=== PATIENT | male | born 1980 | race Caucasian/White ===

== ENCOUNTER 2016-05-29 23:38 | Emergency (ER) | payer MEDICAID ==
[2012-02-14 14:07] VITALS: BMI 27.1
== END 2016-05-30 00:50 | disposition home or self-care (01) ==
LOC: D.ER 23:38
DX: K57.92 Diverticulitis of intestine, part unspecified, without perforation or abscess without bleeding (principal); K59.00 Constipation, unspecified; F17.200 Nicotine dependence, unspecified, uncomplicated

== ENCOUNTER 2016-06-14 16:57 | Emergency (ER) | payer MEDICAID ==
[2012-02-14 14:07] VITALS: BMI 27.1
== END 2016-06-14 19:27 | disposition home or self-care (01) ==
LOC: D.ER 16:57
DX: K04.7 Periapical abscess without sinus (principal); K08.89 Other specified disorders of teeth and supporting structures; F17.200 Nicotine dependence, unspecified, uncomplicated

== ENCOUNTER 2016-07-11 21:04 | Emergency (ER) | payer MEDICAID ==
[2012-02-14 14:07] VITALS: BMI 27.1
== END 2016-07-12 00:26 | disposition home or self-care (01) ==
LOC: D.ER 21:04
DX: M79.672 Pain in left foot (principal); F17.200 Nicotine dependence, unspecified, uncomplicated

== ENCOUNTER 2016-08-15 15:15 | Emergency (ER) | payer MEDICAID ==
[2012-02-14 14:07] VITALS: BMI 27.1
== END 2016-08-15 17:26 | disposition home or self-care (01) ==
LOC: D.ER 15:15
DX: S90.31XA Contusion of right foot, initial encounter (principal); W20.8XXA Other cause of strike by thrown, projected or falling object, initial encounter; Y93.89 Activity, other specified; Y92.89 Other specified places as the place of occurrence of the external cause; Y99.8 Other external cause status; F17.200 Nicotine dependence, unspecified, uncomplicated

== ENCOUNTER 2016-08-17 17:27 | Emergency (ER) | payer MEDICAID ==
[2012-02-14 14:07] VITALS: BMI 27.1
== END 2016-08-17 18:53 | disposition home or self-care (01) ==
LOC: D.ER 17:27
DX: M25.474 Effusion, right foot (principal); S99.921A Unspecified injury of right foot, initial encounter; W20.8XXA Other cause of strike by thrown, projected or falling object, initial encounter; Y93.89 Activity, other specified; Y92.89 Other specified places as the place of occurrence of the external cause

== ENCOUNTER 2016-10-26 15:37 | Emergency (ER) | payer MEDICAID ==
[2012-02-14 14:07] VITALS: BMI 27.1
== END 2016-10-26 17:13 | disposition home or self-care (01) ==
LOC: D.ER 15:37
DX: S62.617A Displaced fracture of proximal phalanx of left little finger, initial encounter for closed fracture (principal); S62.303A Unspecified fracture of third metacarpal bone, left hand, initial encounter for closed fracture; S62.305A Unspecified fracture of fourth metacarpal bone, left hand, initial encounter for closed fracture; X58.XXXA Exposure to other specified factors, initial encounter; Y93.89 Activity, other specified; Y92.89 Other specified places as the place of occurrence of the external cause; F17.200 Nicotine dependence, unspecified, uncomplicated

== ENCOUNTER 2016-10-29 13:47 | Emergency (ER) | payer MEDICAID ==
[2012-02-14 14:07] VITALS: BMI 27.1
[2016-11-02] MEDS ORDERED: NORCO 7.5/325 T1 TA1 PO (14:53)
[2016-11-03 09:47] VITALS: BMI 30.6
== END 2016-10-29 15:58 | disposition home or self-care (01) ==
LOC: D.ER 13:47
DX: Z76.0 Encounter for issue of repeat prescription (principal); F17.200 Nicotine dependence, unspecified, uncomplicated

== ENCOUNTER 2016-11-03 06:04 | Day surgery (SDC) | payer MEDICAID ==
[~2016-11-03] VITALS: Ht 182.9 cm; Wt 101.6 kg
[~2016-11-03 06:04] MED LIST: NORCO 7.5/325 T1 TA1 PO
[2016-11-03 09:47] VITALS: Ht 182.9 cm; Wt 101.6 kg
[2016-11-03] MEDS ORDERED: HYDROCODONE-APA1 TAB PO (15:50)
--- NOTE | 2016-11-03 16:38 | NUR ---
1630-RECD TO ROOM FROM PACU. LEFT HAND/FOREARM DRESSING DRY AND INTACT WITH SLING IN PLACE. STATES PAIN IS 4 AFTER LAST SHOT IN PACU. RESP WITH EASE. TAKING ICE CHIPS WITHOUT NAUSEA.
--- NOTE | 2016-11-03 17:35 | NUR ---
DISCHARGE INSTRUCTIONS REVIEWED WITH PATIENT AND SPOUSE. PATIENT DISCHARGED HOME VIA WHEELCHAIR TO PRIVATE VEHICLE WITH SPOUSE AND [id number]
--- NOTE | 2016-11-06 11:18 | OP ---
PATIENT NAME: SAMANTHA WESLEY MEDICAL RECORD: [id number] :82 LOCATION:D.OPS ADMISSION DATE: SURGEON: VIRY VALLEJO, JOZEF COOPER DATE OF OPERATION: 11/03/2016 PREOPERATIVE DIAGNOSES: 1. Fractured metacarpal, ring finger and long finger on the left hand. 2. Fractured proximal phalanx, proximal aspect, left hand, index finger. PROCEDURES: 1. Open reduction and internal fixation of left long finger metacarpal. 2. Closed reduction and percutaneous pinning of left index finger proximal phalanx. SURGEON: Jozef Baires MD. ANESTHESIA: General. INTRAOPERATIVE COMPLICATIONS: None. SUMMARY OF PATHOLOGIC FINDINGS: Consistent with the preoperative diagnosis, the patient had displaced fractures of both locations as described above. One was treated with percutaneous pinning and the other with a [place] mod hand set. OPERATIVE SUMMARY IN DETAIL: After obtaining the appropriate preoperative orthopedic surgery consent as well as anesthetic consultation, evaluation and clearance, the patient was brought to the operating room and placed on the operating table in supine position. After adequate general laryngeal mask was administered, tourniquet was placed about the proximal aspect of the left upper extremity. Left upper extremity was then prepped and draped in routine sterile fashion. The arm was elevated and exsanguinated, tourniquet inflated to 250 mmHg. Attention was first turned to the closed reduction percutaneous pinning of the proximal phalanx of the left ring finger. The left ring finger was held in a reduced state while two 0.045 pins were placed in a cross fashion under direct fluoroscopy. This resulted in anatomic fixation of the fracture. Pins were bent and [place] balls were placed. Attention was turned to the long finger. Incision was made directly over the long finger metacarpal. Care was taken to avoid the extensor mechanism. Dissection was carried down into subperiosteal fashion. The bone was held in reduction, then a VariAx 1.7 T-plate was utilized with a combination of both compression and locking screws. Radiographs were taken and submitted for final radiologist review. Having completed this, the wound was copiously irrigated. The extensor retinaculum and portions of the dorsal reddy were closed with 2-0 Vicryl, this was followed by 4-0 Prolene in a running fashion. Sterile dressings were applied. A volar splint was applied. The patient was awakened, taken to recovery room in stable condition. All final needle and sponge counts were correct. TRANSINT:[id number] Voice Confirmation ID: [id number] DOCUMENT ID: [id number] OPERATIVE REPORT [id number] SAMANTHA WESLEY MD, JOZEF COOPER at 1118 CC: [id number] DICTATION DATE: 11/03/[address] TELLER: 11/03/16 2302 [facility] 11/03/16 [place] [id number]
== END 2016-11-03 17:35 | disposition home or self-care (01) ==
LOC: D.OPS 06:04 → D.PAN 10:45 → D.OPS 11:15 → D.PAN 11:15 → D.OPS 11:25
DX: S62.603A Fracture of unspecified phalanx of left middle finger, initial encounter for closed fracture (principal); S62.615A Displaced fracture of proximal phalanx of left ring finger, initial encounter for closed fracture; F17.200 Nicotine dependence, unspecified, uncomplicated; Z01.812 Encounter for preprocedural laboratory examination

== ENCOUNTER 2016-12-09 15:22 | Emergency (ER) | payer MEDICAID ==
[2016-11-03 09:47] VITALS: BMI 30.6
[~2016-12-09 15:22] MED LIST changes: +HYDROCODONE-APA1 TAB PO
== END 2016-12-09 16:40 | disposition home or self-care (01) ==
LOC: D.ER 15:22
DX: S62.605A Fracture of unspecified phalanx of left ring finger, initial encounter for closed fracture (principal); X50.0XXA Overexertion from strenuous movement or load, initial encounter; Y93.89 Activity, other specified; Y92.89 Other specified places as the place of occurrence of the external cause; F17.200 Nicotine dependence, unspecified, uncomplicated

== ENCOUNTER 2016-12-28 18:08 | Emergency (ER) | payer MEDICAID ==
[2016-11-03 09:47] VITALS: BMI 30.6
== END 2016-12-28 20:07 | disposition home or self-care (01) ==
LOC: D.ER 18:08
DX: K02.9 Dental caries, unspecified (principal); K08.89 Other specified disorders of teeth and supporting structures

== ENCOUNTER 2017-01-18 17:19 | Emergency (ER) | payer MEDICAID ==
[2016-11-03 09:47] VITALS: BMI 30.6
== END 2017-01-18 18:32 | disposition home or self-care (01) ==
LOC: D.ER 17:19
DX: S69.92XA Unspecified injury of left wrist, hand and finger(s), initial encounter (principal); X58.XXXA Exposure to other specified factors, initial encounter; Y93.89 Activity, other specified; Y92.029 Unspecified place in mobile home as the place of occurrence of the external cause; M79.645 Pain in left finger(s)

== ENCOUNTER 2017-02-11 16:50 | Emergency (ER) | payer MEDICAID ==
[2016-11-03 09:47] VITALS: BMI 30.6
== END 2017-02-11 19:22 | disposition home or self-care (01) ==
LOC: D.ER 16:50
DX: S60.222A Contusion of left hand, initial encounter (principal); W51.XXXA Accidental striking against or bumped into by another person, initial encounter; Y93.89 Activity, other specified; Y92.89 Other specified places as the place of occurrence of the external cause; F17.200 Nicotine dependence, unspecified, uncomplicated

== ENCOUNTER 2017-02-26 20:49 | Emergency (ER) | payer MEDICAID ==
[2016-11-03 09:47] VITALS: BMI 30.6
== END 2017-02-26 22:21 | disposition home or self-care (01) ==
LOC: D.ER 20:49
DX: K02.9 Dental caries, unspecified (principal); K08.89 Other specified disorders of teeth and supporting structures; K05.10 Chronic gingivitis, plaque induced; F17.200 Nicotine dependence, unspecified, uncomplicated

== ENCOUNTER 2017-05-01 15:51 | Emergency (ER) | payer MEDICAID ==
[2016-11-03 09:47] VITALS: BMI 30.6
== END 2017-05-01 19:23 | disposition home or self-care (01) ==
LOC: D.ER 15:51
DX: S62.615A Displaced fracture of proximal phalanx of left ring finger, initial encounter for closed fracture (principal); W20.8XXA Other cause of strike by thrown, projected or falling object, initial encounter; Y93.89 Activity, other specified; Y92.019 Unspecified place in single-family (private) house as the place of occurrence of the external cause

== ENCOUNTER 2017-08-09 12:19 | Emergency (ER) | payer MEDICAID ==
[~2017-08-09] VITALS: Ht 182.9 cm; Wt 104.5 kg
[2017-08-09 12:34] VITALS: Ht 182.9 cm; Wt 104.5 kg
[2017-08-09] MEDS ORDERED: HYDROCODON-ACE1 EAC7 PO (14:18)
[2017-08-09 15:20] VITALS: BP 132/092
== END 2017-08-09 15:21 | disposition home or self-care (01) ==
LOC: D.ER 12:19
DX: S80.01XA Contusion of right knee, initial encounter (principal); W22.8XXA Striking against or struck by other objects, initial encounter; Y93.11 Activity, swimming; Y92.89 Other specified places as the place of occurrence of the external cause

== ENCOUNTER 2017-08-11 10:15 | Emergency (ER) | payer MEDICAID ==
[~2017-08-11] VITALS: Ht 182.9 cm; Wt 104.5 kg
[~2017-08-11 10:15] MED LIST changes: +HYDROCODON-ACE1 EAC7 PO
[2017-08-11 10:19] VITALS: Ht 182.9 cm; Wt 104.5 kg
[2017-08-11] MEDS ORDERED: DILAUDID4 MG PO (11:18)
[2017-08-11 11:22] VITALS: BP 142/87
== END 2017-08-11 11:22 | disposition home or self-care (01) ==
LOC: D.ER 10:15
DX: M25.561 Pain in right knee (principal)

== ENCOUNTER 2017-09-16 22:49 | Emergency (ER) | payer MEDICAID ==
[~2017-09-16] VITALS: Ht 182.9 cm; Wt 104.3 kg
[~2017-09-16 22:49] MED LIST changes: +DILAUDID4 MG PO
[2017-09-16 22:59] VITALS: Ht 182.9 cm; Wt 104.3 kg
[2017-09-17] MEDS ORDERED: AMOXICILLIN500 M1 PO (00:45)
[2017-09-17] MEDS ORDERED: TALWIN NX1 TAB PO (00:45)
[2017-09-17 00:53] VITALS: BP 131/61
== END 2017-09-17 00:53 | disposition home or self-care (01) ==
LOC: D.ER 22:49
DX: K04.7 Periapical abscess without sinus (principal); K08.89 Other specified disorders of teeth and supporting structures; F17.200 Nicotine dependence, unspecified, uncomplicated

== ENCOUNTER 2017-10-10 17:27 | Emergency (ER) | payer MEDICAID ==
[~2017-10-10] VITALS: Ht 182.9 cm; Wt 104.5 kg
[~2017-10-10 17:27] MED LIST changes: +AMOXICILLIN500 M1 PO; +TALWIN NX1 TAB PO
[2017-10-10 17:37] VITALS: Ht 182.9 cm; Wt 104.5 kg
[2017-10-10] MEDS ORDERED: AUGMENTIN 875-11 TAB PO (18:27)
[2017-10-10] MEDS ORDERED: NAPROSYN500 MG PO (18:27)
[2017-10-10 19:01] VITALS: BP 133/89
== END 2017-10-10 18:58 | disposition home or self-care (01) ==
LOC: D.ER 17:27
DX: K08.89 Other specified disorders of teeth and supporting structures (principal); K02.9 Dental caries, unspecified

== ENCOUNTER 2017-10-13 19:44 | Emergency (ER) | payer MEDICAID ==
[~2017-10-13] VITALS: Ht 182.9 cm; Wt 122.5 kg
[~2017-10-13 19:44] MED LIST changes: +AUGMENTIN 875-11 TAB PO; +NAPROSYN500 MG PO
[2017-10-13 19:53] VITALS: BP 132/85; Ht 182.9 cm; Wt 122.5 kg
[2017-10-13] MEDS ORDERED: IBUPROFEN800 MG PO (20:41)
[2017-10-13] MEDS ORDERED: CYCLOBENZAPRINE10 MG PO (20:41)
== END 2017-10-13 20:58 | disposition home or self-care (01) ==
LOC: D.ER 19:44
DX: K08.89 Other specified disorders of teeth and supporting structures (principal); F17.200 Nicotine dependence, unspecified, uncomplicated

== ENCOUNTER 2018-06-27 19:53 | Emergency (ER) | payer SELFPAY ==
[~2018-06-27] VITALS: Ht 182.9 cm; Wt 93.2 kg
[~2018-06-27 19:53] MED LIST changes: +CYCLOBENZAPRINE10 MG PO; +IBUPROFEN800 MG PO
[2018-06-27 20:38] VITALS: Ht 182.9 cm; Wt 93.2 kg
[2018-06-28 03:43] VITALS: BP 119/89
== END 2018-06-28 03:43 | disposition home or self-care (01) ==
LOC: D.ER 19:53
DX: S46.911A Strain of unspecified muscle, fascia and tendon at shoulder and upper arm level, right arm, initial encounter (principal); X58.XXXA Exposure to other specified factors, initial encounter; Y93.89 Activity, other specified; Y92.89 Other specified places as the place of occurrence of the external cause

== ENCOUNTER 2018-09-01 20:03 | Emergency (ER) | payer SELFPAY ==
[~2018-09-01] VITALS: Ht 182.9 cm; Wt 86.2 kg
[2018-09-01 20:05] VITALS: Ht 182.9 cm; Wt 86.2 kg
[2018-09-01 20:41] LABS: BASOPHILS 0.1 % (0-2); EOSINOPHILS 2.3 % (0-7); HEMATOCRIT 40.9 % (42.0-54.0); HEMOGLOBIN 14.2 g/dL (13.5-17.5); IMMATURE GRANULOCYTES 0.2 % (0-5); LYMPHOCYTES 35.7 % (15-50); MCH 29.8 pg (26.0-34.0); MCHC 34.7 g/dL (31.0-37.0); MCV 85.7 fL (80.0-100.0); MEAN PLATELET VOLUME 10.6 fL (7.4-10.4); MONOCYTES 10.4 % (2-11); NEUTROPHILS 51.3 % (40-80); PLATELET COUNT 222 10x3/uL (130-400); RBC 4.77 10x6/uL (4.20-6.10); RDW 13.5 % (11.5-14.5); WBC 8.7 10x3/uL (4.8-10.8)
[2018-09-01 20:50] LABS: APTT 26.4 SECONDS (22.8-39.4); INR 1.09 (0.85-1.17); PROTIME 13.6 SECONDS (11.6-15.0)
[2018-09-01 20:55] LABS: ALBUMIN 3.9 g/dL (3.4-5.0); ALKALINE PHOSPHATASE 88 U/L (46-116); ALT (SGPT) 23 U/L (10-68); BILIRUBIN - TOTAL 0.27 mg/dL (0.2-1.3); CALC OSMOLALITY 278 mosm/kg (275-300); CALCIUM 8.7 mg/dL (8.5-10.1); CARBON DIOXIDE 26.4 mmol/L (21.0-32.0); CHLORIDE - SERUM 105 mmol/L (98-107); CREATININE - SERUM 1.2 mg/dL (0.6-1.3); GLUCOSE 124 mg/dL (74-106); POTASSIUM - SERUM 3.7 mmol/L (3.5-5.1); PROTEIN - SERUM 7.2 g/dL (6.4-8.2); SODIUM 138 mmol/L (136-145); UREA NITROGEN 17 mg/dL (7-18); eGFR NON AFRICAN AMERICAN 72 mL/min (90-120)
[2018-09-01 21:19] LABS: CKMB 1.3 U/L (0.0-3.6); CREATINE KINASE 152 UL (21-232); MAGNESIUM - SERUM 1.9 mg/dL (1.8-2.4)
[2018-09-01 21:23] LABS: TROPONIN-I < 0.017 ng/mL (0.000-0.060)
[2018-09-01] MEDS ORDERED: KEFLEX500 MG PO (21:44)
[2018-09-01] MEDS ORDERED: ALBUTEROL SULF8.5 GM INH (21:44)
[2018-09-01 22:32] VITALS: BP 122/75
== END 2018-09-01 22:30 | disposition home or self-care (01) ==
LOC: D.ER 20:03
PROVIDERS: Emergency Medicine
DX: J45.909 Unspecified asthma, uncomplicated (principal); J01.90 Acute sinusitis, unspecified

== ENCOUNTER 2018-09-09 13:21 | Emergency (ER) | payer SELFPAY ==
[~2018-09-09] VITALS: Ht 182.9 cm; Wt 88.6 kg
[~2018-09-09 13:21] MED LIST changes: +ALBUTEROL SULF8.5 GM INH; +KEFLEX500 MG PO
[2018-09-09 13:33] VITALS: Ht 182.9 cm; Wt 88.6 kg
[2018-09-09 14:00] LABS: BASOPHILS 0.5 % (0-2); EOSINOPHILS 1.8 % (0-7); HEMATOCRIT 42.8 % (42.0-54.0); IMMATURE GRANULOCYTES 0.1 % (0-5); LYMPHOCYTES 21.9 % (15-50); MCH 30.1 pg (26.0-34.0); MCV 85.8 fL (80.0-100.0); MEAN PLATELET VOLUME 10.6 fL (7.4-10.4); MONOCYTES 8.5 % (2-11); NEUTROPHILS 67.2 % (40-80); PLATELET COUNT 235 10x3/uL (130-400); RBC 4.99 10x6/uL (4.20-6.10); RDW 13.5 % (11.5-14.5)
[2018-09-09 14:20] LABS: ALBUMIN 4.2 g/dL (3.4-5.0); ALKALINE PHOSPHATASE 78 U/L (46-116); ALT (SGPT) 15 U/L (10-68); BILIRUBIN - TOTAL 0.32 mg/dL (0.2-1.3); CALC OSMOLALITY 278 mosm/kg (275-300); CALCIUM 8.6 mg/dL (8.5-10.1); CARBON DIOXIDE 28.6 mmol/L (21.0-32.0); CHLORIDE - SERUM 105 mmol/L (98-107); CREATININE - SERUM 1.3 mg/dL (0.6-1.3); GLUCOSE 82 mg/dL (74-106); POTASSIUM - SERUM 3.9 mmol/L (3.5-5.1); PROTEIN - SERUM 7.6 g/dL (6.4-8.2); SODIUM 140 mmol/L (136-145); UREA NITROGEN 14 mg/dL (7-18); eGFR NON AFRICAN AMERICAN 66 mL/min (90-120)
[2018-09-09 14:24] LABS: AMYLASE - SERUM 51 U/L (25-115); LIPASE 84 U/L (73-393)
[2018-09-09 14:25] LABS: TROPONIN-I < 0.017 ng/mL (0.000-0.060)
[2018-09-09 17:51] LABS: APPEARANCE CLEAR (CLEAR); BILIRUBIN NEGATIVE (NEGATIVE); COLOR YELLOW (YELLOW); GLUCOSE NEGATIVE (NEGATIVE); KETONE NEGATIVE (NEGATIVE); NITRITE NEGATIVE (NEGATIVE); PROTEIN NEGATIVE (NEGATIVE); UROBILINOGEN NORMAL (NORMAL)
[2018-09-09] MEDS ORDERED: PROTONIX40 MG PO (19:10)
[2018-09-09] MEDS ORDERED: CARAFATE1 G PO (19:10)
[2018-09-09 19:26] VITALS: BP 112/73
== END 2018-09-09 19:27 | disposition home or self-care (01) ==
LOC: D.ER 13:21
PROVIDERS: Family Medicine
DX: K29.70 Gastritis, unspecified, without bleeding (principal); R07.9 Chest pain, unspecified

== ENCOUNTER 2018-11-09 16:41 | Emergency (ER) | payer MEDICAID ==
[~2018-11-09] VITALS: Ht 182.9 cm; Wt 87.3 kg
[~2018-11-09 16:41] MED LIST changes: +CARAFATE1 G PO; +PROTONIX40 MG PO
[2018-11-09 16:45] VITALS: Ht 182.9 cm; Wt 87.3 kg
[2018-11-09] MEDS ORDERED: ACETAMINOPHEN500 M1 PO (16:58)
[2018-11-09] MEDS ORDERED: CYCLOBENZAPRINE10 MG PO (16:58)
[2018-11-09] MEDS ORDERED: MEDROL DOSE PACK4 MG PO (16:58)
[2018-11-09] MEDS ORDERED: PENICILLIN V P500 MG PO (16:58)
[2018-11-09 17:36] VITALS: BP 132/69
== END 2018-11-09 17:36 | disposition home or self-care (01) ==
LOC: D.ER 16:41
DX: M54.5 Low back pain (principal); K02.9 Dental caries, unspecified

== ENCOUNTER 2019-02-09 17:10 | Emergency (ER) | payer MEDICAID ==
[~2019-02-09] VITALS: Ht 182.9 cm; Wt 90.9 kg
[~2019-02-09 17:10] MED LIST changes: +ACETAMINOPHEN500 M1 PO; +MEDROL DOSE PACK4 MG PO; +PENICILLIN V P500 MG PO
[2019-02-09 17:11] VITALS: Ht 182.9 cm; Wt 90.9 kg
[2019-02-09] MEDS ORDERED: AMOXICILLIN500 M1 PO (19:04)
[2019-02-09] MEDS ORDERED: TALWIN NX1 TAB PO (19:04)
[2019-02-09] MEDS ORDERED: VOLTAREN75 MG PO (19:04)
[2019-02-09 19:54] VITALS: BP 157/96
== END 2019-02-09 19:54 | disposition home or self-care (01) ==
LOC: D.ER 17:10
DX: K04.7 Periapical abscess without sinus (principal); K08.89 Other specified disorders of teeth and supporting structures

== ENCOUNTER 2020-05-09 15:16 | Emergency (ER) | payer OTHER ==
[~2020-05-09] VITALS: Ht 182.9 cm; Wt 97.7 kg
[~2020-05-09 15:16] MED LIST changes: +VOLTAREN75 MG PO
[2020-05-09 15:30] VITALS: BP 142/87; Ht 182.9 cm; Wt 97.7 kg
[2020-05-09] MEDS ORDERED: CYCLOBENZAPRINE10 MG PO (16:00)
[2020-05-09] MEDS ORDERED: ACETAMINOPHEN500 M1 PO (16:00)
[2020-05-09] MEDS ORDERED: MEDROL DOSE PACK4 MG PO (16:00)
[2020-05-09 16:38] LABS: BASOPHILS 0.2 % (0-2); EOSINOPHILS 1.4 % (0-7); HEMATOCRIT 42.1 % (42.0-54.0); HEMOGLOBIN 14.2 g/dL (13.5-17.5); IMMATURE GRANULOCYTES 0.2 % (0-5); LYMPHOCYTE ABS# 2.34 10x3/uL (1.32-3.57); LYMPHOCYTES 25.9 % (15-50); MCH 29.5 pg (26.0-34.0); MCHC 33.7 g/dL (31.0-37.0); MCV 87.3 fL (80.0-100.0); MEAN PLATELET VOLUME 10.3 fL (7.4-10.4); MONOCYTES 14.2 % (2-11); NEUTROPHIL ABS# 5.23 10x3/uL (1.78-5.38); NEUTROPHILS 58.1 % (40-80); PLATELET COUNT 260 10x3/uL (130-400); RBC 4.82 10x6/uL (4.20-6.10); RDW 13.8 % (11.5-14.5)
[2020-05-09 16:51] LABS: CALC OSMOLALITY 274 mosm/kg (275-300); CALCIUM 8.7 mg/dL (8.5-10.1); CHLORIDE - SERUM 103 mmol/L (98-107); GLUCOSE 91 mg/dL (74-106); SODIUM 137 mmol/L (136-145); UREA NITROGEN 16 mg/dL (7-18); eGFR NON AFRICAN AMERICAN 88 mL/min (90-120)
[2020-05-09] MEDS ORDERED: CEPHALEXIN500 M1 PO (16:51)
[2020-05-09 16:53] LABS: APTT 27.9 SECONDS (22.8-39.4); INR 1.12 (0.85-1.17); PROTIME 13.4 SECONDS (11.6-15.0)
[2020-05-09 16:57] LABS: ALBUMIN 3.9 g/dL (3.4-5.0); ALKALINE PHOSPHATASE 87 U/L (30-120); ALT (SGPT) 39 U/L (10-68); BILIRUBIN - TOTAL 0.41 mg/dL (0.2-1.3); C-REACTIVE PROTEIN 8.4 mg/dL (0.0-0.9)
[2020-05-09 17:57] LABS: NEUT - BF 71 %
[2020-05-09 17:58] LABS: ERYTHROCYTE SEDIMENTATION RATE 7 mm/hr (0-15)
== END 2020-05-09 18:26 | disposition home or self-care (01) ==
LOC: D.ER 15:16
PROVIDERS: Family Medicine; Orthopaedic Surgery
DX: K08.89 Other specified disorders of teeth and supporting structures (principal); M79.10 Myalgia, unspecified site; M25.461 Effusion, right knee; M25.561 Pain in right knee

== ENCOUNTER → 2020-05-12 16:25 | Outpatient (CLI) | payer OTHER ==
[2020-05-09 15:30] VITALS: BMI 29.2
[~2020-05-12 16:25] MED LIST changes: +CEPHALEXIN500 M1 PO
== END | disposition home or self-care (01) ==
LOC: D.MRI 16:25
PROVIDERS: ATTEND Clinical Nurse Specialist Family Health
DX: M25.561 Pain in right knee (principal)

== ENCOUNTER → 2020-05-18 18:14 | Outpatient (CLI) | payer OTHER ==
[2020-05-09 15:30] VITALS: BMI 29.2
[2020-05-18 18:26] LABS: BASOPHILS 0.3 % (0-2); EOSINOPHILS 2.3 % (0-7); HEMATOCRIT 41.1 % (42.0-54.0); HEMOGLOBIN 13.5 g/dL (13.5-17.5); IMMATURE GRANULOCYTES 0.2 % (0-5); LYMPHOCYTE ABS# 2.24 10x3/uL (1.32-3.57); LYMPHOCYTES 23.9 % (15-50); MCH 28.8 pg (26.0-34.0); MCHC 32.8 g/dL (31.0-37.0); MCV 87.8 fL (80.0-100.0); MEAN PLATELET VOLUME 10.4 fL (7.4-10.4); MONOCYTES 12.1 % (2-11); NEUTROPHIL ABS# 5.73 10x3/uL (1.78-5.38); NEUTROPHILS 61.2 % (40-80); RBC 4.68 10x6/uL (4.20-6.10); RDW 13.7 % (11.5-14.5); WBC 9.4 10x3/uL (4.8-10.8)
[2020-05-18 18:28] LABS: PLATELET COUNT 333 10x3/uL (130-400)
[2020-05-18 18:40] LABS: C-REACTIVE PROTEIN 0.4 mg/dL (0.0-0.9); URIC ACID 8.6 mg/dL (2.6-7.2)
[2020-05-18 19:52] LABS: CRYSTAL IDENTIFICATION NO CRYSTALS SEEN (NONE SEEN); ERYTHROCYTE SEDIMENTATION RATE 3 mm/hr (0-15)
[2020-05-18 21:16] LABS: EOS BF 3 %; MACROPHAGES BF 38 %; NEUT - BF 36 %
[2020-05-20 10:12] LABS: ANA REFLEX - DIRECT Negative (Negative)
== END | disposition home or self-care (01) ==
LOC: D.LABREF 18:14
PROVIDERS: ATTEND Clinical Nurse Specialist Family Health
DX: M25.561 Pain in right knee (principal)